=== PATIENT | female | born 2000 | race Caucasian/White ===

== ENCOUNTER 2024-12-16 21:35 | Emergency (ER) | payer BC ==
[2024-12-16 22:35] LABS: BASOPHILS ABSOLUTE AUTO 0.05 10^3/uL (0.00-0.10); BASOPHILS PERCENT AUTO 0.6 % (0.0-1.0); EOSINOPHILS ABSOLUTE AUTO 0.15 10^3/uL (0.10-0.30); EOSINOPHILS PERCENT AUTO 1.8 % (1.0-3.0); HEMATOCRIT 35.8 % (37.0-47.0); HEMOGLOBIN 11.9 g/dL (12.0-16.0); IMMATURE GRAN ABSOLUTE AUTO 0.01 10^3/uL (0.00-0.04); IMMATURE GRAN PERCENT AUTO 0.1 % (0.0-0.4); LYMPHOCYTES PERCENT AUTO 42.3 % (20.0-40.0); MEAN CORPUSCULAR HEMOGLOBIN 28.7 pg (27.0-31.0); MEAN CORPUSCULAR HGB CONC 33.2 g/dL (32.0-36.0); MEAN CORPUSCULAR VOLUME 86.5 fL (82.0-92.0); MEAN PLATELET VOLUME 9.1 fL (7.4-10.4); MONOCYTES ABSOLUTE AUTO 0.57 10^3/uL (0.10-0.80); MONOCYTES PERCENT AUTO 6.7 % (2.0-8.0); NEUTROPHILS ABSOLUTE AUTO 4.14 10^3/uL (2.50-7.00); NEUTROPHILS PERCENT AUTO 48.5 % (50.0-70.0); PLATELET COUNT,PLT 398 10^3/uL (150-400); RED BLOOD CELL COUNT 4.14 10^6/uL (3.80-5.50); WHITE BLOOD CELL COUNT,WBC 8.52 10^3/uL (5.00-10.00)
[2024-12-16 22:49] LABS: ANION GAP 11.2 mmol/L (5-15); BLOOD UREA NITROGEN,BUN 15 mg/dL (7-18); CALCIUM 8.9 mg/dL (8.7-10.3); CARBON DIOXIDE,CO2 27.4 mmol/L (21.0-32.0); CHLORIDE,CL 104 mmol/L (98-107); CREATININE 0.74 mg/dL (0.51-1.17); GLUCOSE RANDOM 96 mg/dL (70-140); POTASSIUM,K 3.6 mmol/L (3.5-5.1); SODIUM,NA 139 mmol/L (136-145)
[2024-12-16 22:52] LABS: ESTIMATED GFR 117 mL/min (>=60)
[2024-12-17 01:58] VITALS: BP 122/75; PULSE 84
== END 2024-12-16 23:00 | disposition left against medical advice (07) ==
LOC: KA.ED 21:35
DX: R20.2 Paresthesia of skin (principal); R07.9 Chest pain, unspecified; R20.0 Anesthesia of skin
CPT/HCPCS: 36415; 71045; 80048; 85025; 85379; 93010; 99284; 99285